=== PATIENT | male | born 1950 | race Caucasian/White ===

== ENCOUNTER 2018-11-22 10:53 | Observation (INO) | payer MEDICARE ==
--- NOTE | 2018-11-22 11:58 | RAD ---
EXAM DESCRIPTION: Abdomen Series, x-ray three views CLINICAL HISTORY: ams COMPARISON: None FINDINGS: Frontal view of the chest and supine and upright images of the abdomen were submitted. Cardiac silhouette is within normal limits. There is no focal parenchymal or pleural disease. There is no free air in the abdomen. There is no evidence of bowel obstruction. IMPRESSION: No acute abnormalities. Electronically signed by: Renny Vela MD 11/22/2018 11:56 AM CDT
--- NOTE | 2018-11-22 12:03 | CT ---
EXAM DESCRIPTION: Head CLINICAL HISTORY: ams COMPARISON: None Available. TECHNIQUE: Contiguous axial images of the brain were obtained without the administration of intravenous contrast.This exam was performed according to our departmental dose-optimization program, which includes automated exposure control, adjustment of the mA and/or kV according to patient size and/or use of iterative reconstruction technique. FINDINGS: Subcentimeter area of low-attenuation in the left basal ganglia could represent an old infarct. An acute injury cannot be excluded. There is no acute intracranial hemorrhage. There is atherosclerosis. There is dilatation of the left vertebral artery and basilar artery. Areas of low attenuation in the periventricular and subcortical white matter are nonspecific but suggestive of small vessel disease. There is generalized atrophy. Ventricular system is within normal limits. There is adequate griffin-white matter differentiation. There is no skull fracture. There is mucoperiosteal thickening of the maxillary sinuses compatible chronic sinusitis changes. Lobular opacities could represent underlying mucous retention cysts versus polyps. Filling defect within the external ear canal may represent cerumen. IMPRESSION: Subcentimeter area of low-attenuation in the left basal ganglia could represent an old infarct. An acute injury cannot be excluded. Follow-up MRI could be helpful for further evaluation unless prior exams are available for comparison. Electronically signed by: Renny Vela MD 11/22/2018 12:00 PM CDT Workstation: [id number]
[2018-11-22] MEDS ORDERED: MAGNESIUM SULFATE PREMIX 2GM 2 GM in PREMIX BAG 1 BAG IVPB ONE (14:10)
[2018-11-22] MEDS ORDERED: METOPROLOL TARTRATE 25 MG TAB PO ONE (14:10)
[2018-11-22] MEDS ORDERED: CLOPIDOGREL 75 MG TAB PO ONE (14:10)
[2018-11-22] MEDS ORDERED: MAGNESIUM SULFATE PREMIX 2GM 50 ML IVPB ONE (14:11)
--- NOTE | 2018-11-22 14:19 | ED.PDOC ---
History of Present Illness - General Chief Complaint: Neuro Symptoms/Deficits Stated Complaint: Increasing confusion x 3 days Time Seen by Provider: 11/22/18 10:55 Source: patient Exam Limitations: no limitations - History of Present Illness Initial Comments: the patient is a 68-year-old male sent to the emergency room secondary to some confusion. The patient has been having a little bit of confusion over the last 2-3 days. No focal neurological changes. He woke his son up this morning stating it was time to go to [place]. There were no plans to go to [place]. He does not remember who the president is but he knows where he is, why he is here and what year it is. He is pleasant and cooperative though drowsy. No obvious nuchal rigidity or meningeal signs. No focal neurological changes. He was recently at [facility] for a non-ST elevation IA and was diagnosed with acute congestive heart failure at that time. He apparently underwent a coronary catheterization which showed diffuse disease but no stents were put in place. He was started on multiple medications at that time. He is not having any pain anywhere. No shortness of breath. Vital signs appear to be stable. I see no overt evidence of any infection. He is significantly disheveled. He is able to ambulate and urinate on his own. Timing/Duration: other - 3 days Severity: mild Improving Factors: nothing Worsening Factors: nothing Associated Symptoms: loss of appetite Allergies/Adverse Reactions: Allergies NO KNOWN ALLERGY Allergy (Verified 11/22/18 11:14) Home Medications: Ambulatory Orders Aspirin [Aspirin Adult Low Dose] 81 mg PO DAILY 11/22/18 Clopidogrel Bisulfate [Plavix] 75 mg PO DAILY 11/22/18 Lisinopril 20 mg PO DAILY 11/22/18 Lovastatin 10 mg PO DAILY 11/22/18 Metformin HCl [Metformin Hydrochloride E] 1,000 mg PO BID 11/22/18 Metoprolol Succinate [Metoprolol Succinate ER] 25 mg PO DAILY 11/22/18 Mirtazapine [Remeron] 1 - 2 tablet PO BEDTIME 11/22/18 Omeprazole 20 mg PO DAILY 11/22/18 Spironolactone [Aldactone] 25 mg PO BID 11/22/18 glyBURIDE [Diabeta] 5 mg PO DAILY 11/22/18 traZODone HCL [Desyrel] 50 mg PO BEDTIME 11/22/18 Review of Systems - Review of Systems Constitutional: States: malaise EENTM: States: no symptoms reported Respiratory: States: no symptoms reported Cardiology: States: no symptoms reported Gastrointestinal/Abdominal: States: no symptoms reported Genitourinary: States: no symptoms reported Musculoskeletal: States: no symptoms reported Skin: States: no symptoms reported Neurological: States: other - mild confusion Endocrine: States: no symptoms reported All other Systems: No Change from Baseline Past Medical History (General) - Patient Medical History Hx Stroke: No Hx of COPD: No Hx Congestive Heart Failure: Yes Hx Hypertension: No Hx Diabetes: Yes Hx Cancer: No Hx of HIV: No Hx Hepatitis C: Yes - none treated Surgical History: other - Vaccination History Hx Tetanus, Diphtheria Vaccination: No Hx Influenza Vaccination: No Hx Pneumococcal Vaccination: No - Social History Hx Tobacco Use: No Hx Chewing Tobacco Use: No Hx Alcohol Use: Yes - quit 6 mos ago Hx Substance Use: No Hx Substance Use Treatment: No Hx Depression: No - Female History Patient : No Family Medical History - Family History Mother Living Status: Hx Cardiac Disease: Yes Physical Exam - Physical Exam General Appearance: Alert, Comfortable, No apparent distress Eye Exam: bilateral normal Ears, Nose, Throat: hearing grossly normal, other - poor dentition. A cerumen plug was removed from his left ear canal. Neck: full range of motion, supple Respiratory: lungs clear, normal breath sounds, no respiratory distress, no accessory muscle use Cardiovascular/Chest: normal peripheral pulses, regular rate, rhythm, no edema Peripheral Pulses: radial,right: 2+, radial,left: 2+, dorsalis pedis,right: 2+, dorsalis pedis,left: 2+ Gastrointestinal/Abdominal: non tender, soft Rectal Exam: deferred Back Exam: no CVA tenderness, no vertebral tenderness Extremity: normal range of motion, non-tender, normal inspection, no pedal edema, normal capillary refill Neurologic: icer air conditioning II-XII nml as tested, other - the patient is drowsy but he technically is oriented 3 Skin Exam: normal color - the patient is very dirty and disheveled Comments: Vital Signs - 24 hr 11/22/18 11/22/18 11/22/18 10:55 12:00 13:00 Temperature 97.2 F L Pulse Rate [L 87 85 83 finger] Respiratory 18 18 18 Rate Blood Pressure 136/79 137/86 138/90 [L arm] O2 Sat by Pulse 96 97 97 Oximetry 11/22/18 14:00 Temperature Pulse Rate [L 85 finger] Respiratory 18 Rate Blood Pressure 138/90 [L arm] O2 Sat by Pulse 100 Oximetry Progress - Progress Progress: 11/22/18 14:22 the patient's 68-year-old male presenting to the emergency room secondary to what appears to be mild confusion over the last couple of days. He does not appear to have any obvious focal neurological deficits at this time. It is possible that he may have had a small stroke several days ago as reflected by the small abnormal area on the head CT. He is already on aspirin and Plavix. It is also possible that he may be having some confusion related to adverse effects from his Remeron and trazodone possibly in conjunction with a benzodiazepine and marijuana as evidenced by his urine drug screen. Due to this the patient will be admitted and followed here in a controlled setting. Mental status will need to be watched. Remeron and trazodone can either be held or given at a significantly reduced dosage to see if their clearance will improve his mental status. He has received a liter of IV fluids here. His recent history would not suggest giving him more. His magnesium level is low and he is going to receive 2 g of magnesium sulfate. He is going to be placed on Augmentin for the sinusitis. - Results/Orders Results/Orders: head CT shows a subcentimeter area on the left basal ganglia that couldrelate to a stroke at some point. He does have sinusitis on the head CT. He also has a cerumen impaction on the head CT. Chest x-ray shows no acute infiltrates. EKG shows normal sinus rhythm at 84 bpm. First degree AV block. Inverted T waves and anterior and lateral leads. Borderline T-wave inversion in inferior leads. This is apparently consistent with the EKGs obtained in [facility] description. Laboratory Tests 11/22/18 11/22/18 11/22/18 11:02 11:48 11:48 WBC 7.3 RBC 4.98 Hgb 13.7 L Hct 41.4 L MCV 83.2 MCH 27.5 MCHC 33.0 RDW 14.7 H Plt Count 273 MPV 8.2 Absolute Neuts (auto) 5.30 Absolute Lymphs (auto) 1.20 Absolute Monos (auto) 0.60 Absolute Eos (auto) 0.20 Absolute Basos (auto) 0.10 Neutrophils % 72.4 Lymphocytes % 16.0 L Monocytes % 7.8 Eosinophils % 3.1 Basophils % 0.7 Sodium 136 Potassium 3.6 Chloride 103 Carbon Dioxide 25 Anion Gap 11.6 L BUN 11 Creatinine 0.82 BUN/Creatinine Ratio 13.4 Random Glucose 220 H Serum Osmolality 278.1 Lactic Acid Calcium 9.8 Magnesium 1.4 L Total Bilirubin 0.6 AST 39 ALT 40 Alkaline Phosphatase 55 Creatine Kinase 36 L CK-MB (CK-2) 2.0 CK-MB (CK-2) % Not Reportable Troponin I 0.04 B-Natriuretic Peptide 757.0 H* Serum Total Protein 6.8 Albumin 3.4 Globulin 3.4 Albumin/Globulin Ratio 1.0 L Amylase 37 Lipase 30 TSH 0.76 Urine Color Urine Appearance Urine pH Ur Specific [place] Urine Protein Urine Glucose (UA) Urine Ketones Urine Blood Urine Nitrite Urine Bilirubin Urine Urobilinogen Ur Leukocyte Esterase Urine RBC Urine WBC Ur Epithelial Cells Urine Bacteria Urine Opiates Screen Negative Urine Barbiturates Negative Ur Phencyclidine Scrn Negative U Amphetamin/Meth Scrn Negative U Benzodiazepines Scrn Positive H U Cocaine Metab Screen Negative U Cannabinoids Screen Positive H Ethyl Alcohol 11/22/18 11/22/18 11/22/18 11:48 11:48 13:49 WBC RBC Hgb Hct MCV MCH MCHC RDW Plt Count MPV Absolute Neuts (auto) Absolute Lymphs (auto) Absolute Monos (auto) Absolute Eos (auto) Absolute Basos (auto) Neutrophils % Lymphocytes % Monocytes % Eosinophils % Basophils % Sodium Potassium Chloride Carbon Dioxide Anion Gap BUN Creatinine BUN/Creatinine Ratio Random Glucose Serum Osmolality Lactic Acid 1.1 Calcium Magnesium Total Bilirubin AST ALT Alkaline Phosphatase Creatine Kinase CK-MB (CK-2) CK-MB (CK-2) % Troponin I B-Natriuretic Peptide Serum Total Protein Albumin Globulin Albumin/Globulin Ratio Amylase Lipase TSH Urine Color Yellow Urine Appearance Clear Urine pH 6.0 Ur Specific [place] >= 1.030 Urine Protein 100 H Urine Glucose (UA) Negative Urine Ketones Negative Urine Blood Negative Urine Nitrite Negative Urine Bilirubin Negative Urine Urobilinogen 1.0 Ur Leukocyte Esterase Negative Urine RBC 0 Urine WBC 0 Ur Epithelial Cells 0 Urine Bacteria 0 Urine Opiates Screen Urine Barbiturates Ur Phencyclidine Scrn U Amphetamin/Meth Scrn U Benzodiazepines Scrn U Cocaine Metab Screen U Cannabinoids Screen Ethyl Alcohol < 5.40 - EKG/XRAY/CT CT Ordered: Yes Departure - Departure Clinical Impression: Hypomagnesemia Sinusitis Qualifiers: Sinusitis location: other Chronicity: subacute Qualified Code(s): J01.80 - Other acute sinusitis Altered mental status, unspecified Qualifiers: Altered mental status type: disorientation Qualified Code(s): R41.0 - Disorientation, unspecified Disposition: Admit Patient Departure Forms: ED Discharge - Pt. Copy, Patient Portal Self Enrollment Referrals: Stiven Shultz MD [Primary Care Provider] - 1-2 Weeks Home Medications: Ambulatory Orders Aspirin [Aspirin Adult Low Dose] 81 mg PO DAILY 11/22/18 Clopidogrel Bisulfate [Plavix] 75 mg PO DAILY 11/22/18 Lisinopril 20 mg PO DAILY 11/22/18 Lovastatin 10 mg PO DAILY 11/22/18 Metformin HCl [Metformin Hydrochloride E] 1,000 mg PO BID 11/22/18 Metoprolol Succinate [Metoprolol Succinate ER] 25 mg PO DAILY 11/22/18 Mirtazapine [Remeron] 1 - 2 tablet PO BEDTIME 11/22/18 Omeprazole 20 mg PO DAILY 11/22/18 Spironolactone [Aldactone] 25 mg PO BID 11/22/18 glyBURIDE [Diabeta] 5 mg PO DAILY 11/22/18 traZODone HCL [Desyrel] 50 mg PO BEDTIME 11/22/18 Decision To Admit - Decistion To Admit Decision to Admit Reason: Medical Nature Decision to Admit Date: 11/22/18 Decision to Admit Time: 14:25
[2018-11-22] MEDS ORDERED: AMOXICILLIN & POT CLAVULANATE 875 MG TAB PO ONE (14:26)
--- NOTE | 2018-11-22 14:32 | HP ---
SUPERVISING PHYSICIAN: Piero Fofana M.D. CHIEF COMPLAINT: Altered mental status. HISTORY OF PRESENT ILLNESS: This is a 68 year-old male patient who came to the Emergency Room after a 2 to 3 day complaint of increased confusion. At the time of admission to the Emergency Room he had no neurological changes. He lives with his son in [place], [place] and he woke his son up this morning and told him it was time to go [place]. There had been no plans to go to [place]. He was oriented to person and place, but was unable to answer who the President was and what the exact date it was. Although pleasant and cooperative, he became increasingly more confused the more questions that were asked. About 3 weeks ago he was in [facility] for a non-ST segment elevation myocardial infarction and was diagnosed with acute congestive heart failure. He underwent coronary tests that showed diffuse disease but there were no stents placed. He had been started on diuretics as well as several medications at that time. His vital signs in the E. R. were stable. CT of the head showed some microvascular changes as well as possible small vessel disease and findings that were compatible with chronic sinusitis, but otherwise no acute changes noted. There may be an area of low attenuation in the left basal ganglia that could represent an old infarct and of course a CT was unable to determine if it was an acute injury. His abdominal x-ray showed no acute abnormalities. CBC was unremarkable. Electrolytes were unremarkable with the exception of his magnesium was low at 1.4. Lactic acid was 1.1. BNP was 757, although there was no evidence of exacerbation of his CHF. His UA was negative. UDS was negative except for Benzodiazepines and cannabinoids. Ethyl alcohol was less than 5.4. He was given some Augmentin in the Emergency Room as well as magnesium supplementation. I was called for hospital admission. It is to be noted that it was difficult to obtain a medical history and review of systems due to the patient's inability to answer many questions. PAST MEDICAL HISTORY: 1. Hypertension. 2. Diabetes mellitus type 2 on oral medication. 3. Gastroesophageal reflux disease. 4. Hyperlipidemia. 5. New diagnosis of congestive heart failure of unknown etiology. 6. Insomnia. PAST SURGICAL HISTORY: None. OUTPATIENT MEDICATIONS: 1. Aspirin. 2. Plavix. 3. Lisinopril. 4. Lovastatin. 5. Metformin. 6. Metoprolol. 7. Remeron. 8. Omeprazole. 9. Spironolactone. 10. Glyburide. 11. DiaBeta. 12. Trazodone. ALLERGIES: NO KNOWN DRUG ALLERGIES. SOCIAL HISTORY: He lives with his son in [place]. He denies tobacco, ETOH or illicit drug use. REVIEW OF SYSTEMS: Unable to obtain due to the patient's mental status. PHYSICAL EXAMINATION: VITAL SIGNS: Temp; 97.5, heart rate 82, blood pressure 136/86, respiratory rate 24, O2 sat 96% on room air. GENERAL: This is a 68 year-old male patient who is lying in his hospital bed. He is in no acute distress. HEENT: Normocephalic and atraumatic. Pupils are equal and reactive. Oropharynx is clear. NECK: Supple without mass. RESPIRATORY: Essentially clear to auscultation bilaterally. CHEST: There is equal rise and fall of the chest with inspiration and expiration. CARDIOVASCULAR: Regular rate and rhythm. GASTROINTESTINAL: Abdomen is soft, nondistended, non-tender. Bowel sounds are positive. EXTREMITIES: No clubbing, cyanosis or edema. NEUROLOGIC: He is awake, alert and oriented times three, although he has a difficult time answering questions such as who is the President or what the exact date is. He does know the year. He also gets very confused when asked about his medical history. SKIN: Warm and dry. ASSESSMENT: 1. Altered mental status of unknown etiology, may be secondary to chronic sinusitis and/or new medication regimen as well as being positive for Benzodiazepines and cannabinoids. 2. Congestive heart failure, new diagnosis, with unknown etiology. He did have a BNP of 757, but there are no signs or symptoms of acute exacerbation. 3. Chronic sinusitis. 4. Positive urine drug screen from Benzodiazepines with no current prescription for Benzodiazepines as well as cannabinoids. 5. Hypertension. 6. Gastroesophageal reflux disease. 7. Hyperlipidemia. PLAN: We will place the patient in observation. I have initiated the TIA guidelines. He will have neurologic checks every 4 hours. I will recheck his labs in the morning as well as a chest x-ray. He is on Lovenox for DVT prophylaxis as well as a PPI for ulcer prophylaxis. I will also hold his Trazodone and the high dose of his Remeron overnight to see if his mental status improves. I did give him the low dose of Remeron tonight and I have also given him melatonin for sleep as the patient did say he had difficulty sleeping. I will review his labs in the morning. He may need further workup with neurology. I have also continued the Augmentin that was ordered in the E. R. for his chronic sinusitis. He may need to go home on several weeks for that. Will continue to monitor him closely and follow as needed. #[id number] MTDD
[2018-11-22] MEDS ORDERED: GLUCAGON INJ 1 MG VIAL SUBCU PRN (16:01)
[2018-11-22] MEDS ORDERED: DEXTROSE 50% 25 GM/50 ML SYG IV PRN (16:01)
[2018-11-22] MEDS ORDERED: SODIUM CHLORIDE 0.9% (FLUSH) 10 ML SYG IV PRN ×2 (16:03→16:05)
[2018-11-22] MEDS ORDERED: IV SET AND CAP CHANGE INJ INJ SCH ×2 (16:30)
[2018-11-22] MEDS: INSULIN LISPRO 100 UNITS/ML PEN SUBCU SCH ×2 (16:31→21:03)
[2018-11-22] MEDS: ENOXAPARIN SODIUM 40 MG/0.4 ML SYG SUBCU SCH (17:02)
[2018-11-22] MEDS: metFORMIN HCL 500 MG TAB PO SCH (17:02)
[2018-11-22] MEDS ORDERED: OMEPRAZOLE CAP 20 MG CAP ONE (19:12)
[2018-11-22] MEDS: MIRTAZAPINE 15 MG TAB PO SCH (20:53)
[2018-11-22] MEDS: SPIRONOLACTONE 25 MG TAB PO SCH (20:53)
[2018-11-22] MEDS: SIMVASTATIN 10 MG TAB PO SCH (20:53)
[2018-11-22] MEDS: MELATONIN 3 MG TAB PO SCH (20:53)
[2018-11-22] MEDS: AMOXICILLIN & POT CLAVULANATE 500MG TAB PO SCH (20:53)
[2018-11-22] MEDS: SODIUM CHLORIDE 0.9% (FLUSH) 10 ML SYG IV SCH (20:53)
[2018-11-23] MEDS: OMEPRAZOLE CAP 20 MG CAP PO SCH (06:13)
[2018-11-23] MEDS ORDERED: ASPIRIN (ENTERIC COATED) 81 MG TAB PO ONE (06:57)
[2018-11-23] MEDS ORDERED: LISINOPRIL 10 MG TAB ONE (06:57)
[2018-11-23] MEDS ORDERED: METOPROLOL SUCCINATE XL 25 MG TAB PO ONE (06:57)
[2018-11-23] MEDS ORDERED: CLOPIDOGREL 75 MG TAB ONE (06:57)
--- NOTE | 2018-11-23 07:01 | RAD ---
Six EXAM DESCRIPTION: Chest,1 View CLINICAL HISTORY: chf COMPARISON: None available FINDINGS: The cardiomediastinal silhouette is unremarkable. There is no airspace consolidation or pleural effusion. The bronchovascular markings are within normal limits, and the lungs are not hyperinflated. There is no pneumothorax or acute fracture. IMPRESSION: No radiographic evidence of CHF. Electronically signed by: Daryl Garcia MD 11/23/2018 6:59 AM CDT
[2018-11-23] MEDS: INSULIN LISPRO 100 UNITS/ML PEN SUBCU SCH ×4 (07:38→21:32)
[2018-11-23] MEDS: metFORMIN HCL 500 MG TAB PO SCH ×2 (07:39→17:10)
[2018-11-23] MEDS: AMOXICILLIN & POT CLAVULANATE 500MG TAB PO SCH ×2 (08:11→20:52)
[2018-11-23] MEDS: CLOPIDOGREL 75 MG TAB PO SCH (08:11)
[2018-11-23] MEDS: METOPROLOL SUCCINATE XL 25 MG TAB PO SCH (08:11)
[2018-11-23] MEDS: LISINOPRIL 10 MG TAB PO SCH (08:11)
[2018-11-23] MEDS: ASPIRIN (ENTERIC COATED) 81 MG TAB PO SCH (08:11)
[2018-11-23] MEDS: SPIRONOLACTONE 25 MG TAB PO SCH ×2 (08:12→20:52)
[2018-11-23] MEDS: SODIUM CHLORIDE 0.9% (FLUSH) 10 ML SYG IV SCH ×2 (08:12→20:53)
[2018-11-23] MEDS: ENOXAPARIN SODIUM 40 MG/0.4 ML SYG SUBCU SCH (08:12)
[2018-11-23] MEDS ORDERED: MAGNESIUM SULFATE PREMIX 2GM 2 GM in PREMIX BAG 1 BAG IVPB ONE (08:29)
[2018-11-23] MEDS ORDERED: MAGNESIUM SULFATE PREMIX 2GM 50 ML IVPB ONE (08:54)
--- NOTE | 2018-11-23 10:29 | US ---
EXAM DESCRIPTION: Carotid Duplex: ULTRASOUND. CLINICAL HISTORY: 68 years Male confusion COMPARISON: CT scan of the head 11/22/2018. TECHNIQUE: Transcutaneous scanning utilizing griffin-scale and Doppler modes to evaluate the bilateral carotid systems and vertebral arteries. Percentage of diameter of stenosis or no stenosis recorded will be based upon NASCET criteria. FINDINGS: Peak systolic/end diastolic (CM-Sec) CCA Right 53/9 Left 47/6. ICA Right proximal 49/15, mid 52/15. Left proximal 61/11, mid 53/11. Vertebral Right 22/5 Left not seen.. ECA (PS Only) Right 61 left 89. ICA/CCA peak systolic ratio: Right 1.0 Left 1.3 ICA/CCA end diastolic ratio: Right 1.7 Left 1.8 Vertebral arteries: antegrade flow right. Left vertebral artery not visualized. Comments: Atherosclerotic calcification in the bilateral common carotid bifurcations. Spectral broadening distal right ICA. Spectral broadening proximal and distal left ICA. Area and diameter stenosis of the left common carotid bulb less than 60%. Area and diameter stenosis of the proximal left ICA less than 55%. Area and diameter stenosis of the proximal right ICA less than 35%. IMPRESSION: 1. Doppler evaluation of the bilateral carotid systems and vertebral arteries shows no hemodynamically significant stenoses. However, area and diameter stenosis of the left common carotid bulb is between 60 and 55%. 2. Moderate amount of plaque seen in the carotid arteries bilaterally. Right vertebral artery showed antegrade-cephalad flow. Left vertebral artery was not visualized. Electronically signed by: Cole Araya MD 11/23/2018 10:27 AM CDT
--- NOTE | 2018-11-23 19:49 | PN ---
DATE: 11/23 SUPERVISING PHYSICIAN: Henrry Taylor M.D. SUBJECTIVE: The patient is lying in bed visiting with a friend. He is still slightly confused today, although he is oriented to person, place and day of the week. He is feeling better and denies any shortness of breath, but he continues to be confused if asked any complicated questions. It also takes him several minutes to answer a question. OBJECTIVE: VITAL SIGNS: Temperature 98.2, heart rate 80, blood pressure 111/72, respiratory rate 20, O2 sat 98% on room air. RESPIRATORY: Essentially clear to auscultation bilaterally. CARDIAC: Regular rate and rhythm. GASTROINTESTINAL: Abdomen is soft, nondistended, non-tender. Bowel sounds are positive. NEUROLOGIC: He is awake and alert but gets confused easily and is unable to answer most questioning. LABORATORY: WBCs are 8.6 with hemoglobin 13.9, hematocrit 42.8. Electrolytes are basically within normal limits with the exception of his magnesium is low at 1.6, glucose has run between 114 and 156. Triglyceride 136, LDH 55.9, HDL 19. Amylase 37, lipase 30, TSH 0.76. Chest x-ray shows no radiographic evidence of congestive heart failure. Carotid artery ultrasound shows: 1. Doppler evaluation of the bilateral carotid system and vertebral arteries show no hemodynamically significant stenosis, however area and diameter stenosis of the left common carotid bulb is between 60 and 55%. 2. Moderate amount of plaque seen in the carotid arteries bilaterally. Right vertebral artery shows antegrade cephalad flow. Left vertebral artery was not visualized. All other labs and films have been reviewed via the EMR. ASSESSMENT: 1. Altered mental status of unknown etiology, may be secondary to chronic sinusitis and/or new medication regimen as well as being positive for Benzodiazepines and cannabinoids. 2. Congestive heart failure, new diagnosis, with unknown etiology. He did have a BNP of 757, but there are no signs or symptoms of acute exacerbation and his chest x-ray shows no signs or symptoms of acute exacerbation. 3. Chronic sinusitis. 4. Positive urine drug screen from Benzodiazepines with no current prescription for Benzodiazepines as well as cannabinoids. 5. Hypertension. 6. Gastroesophageal reflux disease. 7. Hyperlipidemia. PLAN: We will continue present supportive care. Will continue the patient in observation. He is on a very small amount of Remeron and his Trazodone has been discontinued. I am not sure that his mental status has improved. Most likely he will need to be discharged home with a followup with a neurologist. Will continue with the Augmentin for his sinusitis. Will plan for discharge tomorrow or the next day with close followup with neurology as well as his PCP. Will continue to monitor closely and follow as needed. #[id number] MTDD
[2018-11-23] MEDS: MELATONIN 3 MG TAB PO SCH (20:52)
[2018-11-23] MEDS: MIRTAZAPINE 15 MG TAB PO SCH (20:52)
[2018-11-23] MEDS: SIMVASTATIN 10 MG TAB PO SCH (20:52)
[2018-11-24] MEDS: OMEPRAZOLE CAP 20 MG CAP PO SCH (06:15)
[2018-11-24] MEDS: INSULIN LISPRO 100 UNITS/ML PEN SUBCU SCH ×2 (07:03→11:28)
[2018-11-24] MEDS: METOPROLOL SUCCINATE XL 25 MG TAB PO SCH (08:10)
[2018-11-24] MEDS: metFORMIN HCL 500 MG TAB PO SCH (08:10)
[2018-11-24] MEDS: ASPIRIN (ENTERIC COATED) 81 MG TAB PO SCH (08:10)
[2018-11-24] MEDS: LISINOPRIL 10 MG TAB PO SCH (08:10)
[2018-11-24] MEDS: AMOXICILLIN & POT CLAVULANATE 500MG TAB PO SCH (08:11)
[2018-11-24] MEDS: SODIUM CHLORIDE 0.9% (FLUSH) 10 ML SYG IV SCH (08:11)
[2018-11-24] MEDS: CLOPIDOGREL 75 MG TAB PO SCH (08:11)
[2018-11-24] MEDS: ENOXAPARIN SODIUM 40 MG/0.4 ML SYG SUBCU SCH (08:11)
[2018-11-24] MEDS: SPIRONOLACTONE 25 MG TAB PO SCH (08:59)
[2018-11-24] MEDS ORDERED: MAGNESIUM SULFATE PREMIX 2GM 2 GM in PREMIX BAG 1 BAG IVPB ONE (09:57)
[2018-11-24] MEDS ORDERED: MAGNESIUM SULFATE PREMIX 2GM 50 ML IVPB ONE (10:30)
[2018-11-24 10:57] VITALS: BP 119/78; TEMP 97.9; O2SAT 97
--- NOTE | 2018-11-27 09:01 | DS ---
SUPERVISING PHYSICIAN: Henrry Taylor MD DISCHARGE DIAGNOSIS: 1. Altered mental status of unknown etiology, may be secondary to chronic sinusitis and/or new medication regimen as well as being positive for benzodiazepines and cannabinoids. 2. Congestive heart failure, new diagnosis, with unknown etiology. He did have a BNP of 757, but there are no signs or symptoms of acute exacerbation and his chest x-ray shows no signs or symptoms of acute exacerbation. 3. Chronic sinusitis. 4. Positive urine drug screen from benzodiazepines with no current prescription for benzodiazepines as well as cannabinoids. 5. Hypertension. 6. Gastroesophageal reflux disease. 7. Hyperlipidemia. HISTORY OF PRESENT ILLNESS: This is a 68-year-old male patient who came to the Emergency Room after his son complained that for 2 to 3 days he had some increased confusion. At the time of admission to the Emergency Room he had no neurological changes or stroke-like symptoms. He lives with his son in [place], [place], and on the morning prior to admission, he woke his son up and asked when they were leaving for [place]. There had been no plans to go to [place]. He was oriented to person and place, but was unable to answer who the President was and what the exact date it was. He was pleasant and cooperative, but with more questioning, he became more and more confused. About 3 weeks prior to his admission, he was in [facility] for a non-ST segment elevation myocardial infarction and was also diagnosed with acute congestive heart failure. He underwent a coronary catheterization that showed diffuse disease, but there were no stents placed. He had been started on diuretics as well as several other heart medications at that time. His vital signs in the Emergency Room were stable. CT of the head showed some microvascular changes as well as possible small vessel disease and findings that were compatible with chronic sinusitis, but otherwise no acute changes noted. There may be an area of low attenuation in the left basal ganglia that could represent an old infarct and the CT was unable to determine if it was an acute injury. His abdominal x-ray showed no acute abnormalities. CBC was unremarkable. Electrolytes were unremarkable with the exception of his magnesium was low at 1.4. Lactic acid was 1.1. BNP was 757, although there was no evidence of exacerbation of his CHF. His UA was negative. UDS was negative except for benzodiazepines and cannabinoids. Ethyl alcohol was less than 5.4. He was given some Augmentin in the Emergency Room as well as magnesium supplementation. I was called to place the patient in Observation in the hospital for his neuro status. It was difficult to obtain a medical history and review of systems due to the patient's inability to answer many questions. HOSPITAL COURSE: The patient was placed in Observation and TIA guidelines were initiated. His neuro checks did not change lead the next 2 days. Lovenox was started for DVT prophylaxis and proton pump inhibitor for ulcer prophylaxis. His outpatient medications showed him taking trazodone at night as well as 15 to 30 mg of Remeron nightly. I discontinued the trazodone and placed him on a smaller dosing of Remeron at 15 mg at h.s. He was given some melatonin for his insomnia. He was also started on the Augmentin for the possible chronic sinusitis. His mental status did not change and did not worsen, nor did it vastly improve. Sometimes, you could speak with the patient and he was more oriented than other times, but he usually had increased confusion with multiple questions. His vital signs have remained stable. His glipizide was never started as his blood sugars ran between 97 and 156 and I am not sure that there could have been some low blood sugars that could have contributed to his confusion. He will be discharged home today in stable condition. LABORATORY: CBC remained unremarkable with hemoglobin 13.9, hematocrit 42.8. Blood sugars ran between 97 and 156. He was only on metformin while in the hospital as well as a sliding scale insulin with a.c. and h.s. blood sugar checks. Chemistries were unremarkable although he did have several supplementations of magnesium for the initial low magnesium. He received magnesium supplementation today and prior to supplementation, his magnesium was 1.7. Triglycerides 136, LDL 55.8 and HDL was 19. TSH 0.75, lipase 30, amylase 37. RADIOLOGY: Head CT and abdominal x-ray as per the history of present illness. His chest x-ray showed no radiographic evidence of congestive heart failure. His carotid artery ultrasound showed 1) Doppler evaluation of the bilateral carotid systems and vertebral arteries showed no hemodynamically significant stenosis, however, area and diameter stenosis of the left common carotid bulb is between 60 and 55%. 2) Moderate amount of plaque seen in the carotid arteries bilaterally. Right vertebral artery shows antegrade-cephalad flow. Left vertebral artery was not visualized. DISCHARGE PLAN: The patient will be discharged home in stable condition. Physical therapy had recommended that he go home with home health, but at the time of discharge he refused home health and he would talk to Melany Arenas about home health on his hospital followup visit. He is to resume his previous diet, which was a diabetic diet. He can increase his activity as tolerated. He has a followup appointment with Melany Arenas on 12/02/18 at 10:15 AM. In addition to his changes in his home medications, he is also to go home on Augmentin twice daily for a total of 3 weeks. It is recommended that he have a neurological consultation. I stopped his trazodone and started him on melatonin. His Remeron has been reduced to 15 mg at bedtime. I did discontinue his glipizide as his blood sugars ran between 97 and 156 while in the hospital and the only diabetic medication he was on was metformin. It is also recommended that he discuss having home health to help with his physical therapy. He is to return to the hospital or followup with Melany Arenas for any problems or complications. DISCHARGE MEDICATIONS: 1. Metoprolol. 2. Aspirin. 3. Lovastatin. 4. Metformin. 5. Lisinopril. 6. Aldactone. 7. Omeprazole. 8. Plavix. 9. Augmentin. 10. Melatonin 3 mg at bedtime. 11. Remeron 15 mg at bedtime. #[id number] MTDD
== END 2018-11-24 11:40 | disposition home or self-care (01) ==
LOC: ER 10:53 → MS 14:30
PROVIDERS: ADMIT Nurse Practitioner Acute Care; ATTEND Nurse Practitioner Acute Care
DX: E83.42 Hypomagnesemia (principal); R41.82 Altered mental status, unspecified; I11.0 Hypertensive heart disease with heart failure; I50.9 Heart failure, unspecified; J32.9 Chronic sinusitis, unspecified; F12.10 Cannabis abuse, uncomplicated; F13.10 Sedative, hypnotic or anxiolytic abuse, uncomplicated; K21.9 Gastro-esophageal reflux disease without esophagitis; E78.5 Hyperlipidemia, unspecified; E11.9 Type 2 diabetes mellitus without complications; I65.23 Occlusion and stenosis of bilateral carotid arteries; I44.0 Atrioventricular block, first degree; G47.00 Insomnia, unspecified; Z79.84 Long term (current) use of oral hypoglycemic drugs; Z79.02 Long term (current) use of antithrombotics/antiplatelets; Z79.82 Long term (current) use of aspirin; Z79.899 Other long term (current) drug therapy; Z86.19 Personal history of other infectious and parasitic diseases
CPT/HCPCS: 96366 ×2; 96365; 96372 ×3; J1650 ×3; J3475 ×3; J1815; 80048; 82553; 80053 ×2; 80307; 82948 ×8; 80061; 36415 ×3; 82150; 81001; 85025 ×2; 82550; 80320; 83690; 83735 ×3; 84443; 84484; 83880; 36416 ×7; 83605; 74019; 71045; 70450; 93880; 94760 ×8; 97116; G8978; G8979; 97162; 99285; 93005

== ENCOUNTER 2019-12-04 14:13 | Emergency (ER) | payer MEDICARE ==
[2019-12-04] MEDS ORDERED: SODIUM CHLORIDE 0.9% 1000ML 1,000 ML IVS PRN (14:20)
[2019-12-04] MEDS ORDERED: SODIUM CHLORIDE 0.9% (FLUSH) 10 ML SYG IV PRN (14:20)
--- NOTE | 2019-12-04 14:26 | ED.PDOC ---
History of Present Illness - General Time Seen by Provider: 12/04/19 14:17 Source: patient, RN notes reviewed, Vital Signs reviewed, EMS notes reviewed, EMS Exam Limitations: clinical condition - History of Present Illness Initial Comments: Patient is a 69-year-old male with a history of coronary artery disease who presents the ED via ambulance for confusion. No family is available at this time. Per EMS, patient had went to the [employer] on 4 separate occasions today to check the balance and his bank account then went to [facility] and the workers there felt he was confused and called EMS. EMS talk to patient's son prior to transport who stated that patient is more confused than his baseline today, but it is unknown when this started. Patient denies headache, chest pain, shortness of breath, nausea or any symptoms. He cannot tell me what he has done today. Denies fever or any recent illnesses or head injury. Per EMR he was admitted 1 year ago for a similar presentation that was felt to be due to to medications he had recently started. Allergies/Adverse Reactions: Allergies NO KNOWN ALLERGY Allergy (Verified 12/04/19 14:51) Home Medications: Ambulatory Orders RX: Aspirin [Aspirin Adult Low Dose] 81 mg PO DAILY 11/22/18 RX: Clopidogrel Bisulfate [Plavix] 75 mg PO DAILY 11/22/18 RX: Lisinopril 20 mg PO DAILY 11/22/18 RX: Lovastatin 10 mg PO DAILY 11/22/18 RX: Metformin HCl [Metformin Hydrochloride E] 1,000 mg PO BID 11/22/18 RX: Metoprolol Succinate [Metoprolol Succinate ER] 25 mg PO DAILY 11/22/18 RX: Omeprazole 20 mg PO DAILY 11/22/18 RX: Spironolactone [Aldactone] 25 mg PO BID 11/22/18 RX: Amoxicillin & Pot Clavulanate [Augmentin Tab] 500 mg PO Q12H #36 tab 11/24/18 RX: Melatonin 3 mg PO BEDTIME #30 tab 11/24/18 RX: Mirtazapine [Remeron] 15 mg PO BEDTIME tab 11/24/18 Review of Systems - Review of Systems Constitutional: Denies: chills, fever, weakness EENTM: Denies: blurred vision, nose congestion, throat pain Respiratory: Denies: cough, short of breath Cardiology: Denies: chest pain, edema, syncope Gastrointestinal/Abdominal: Denies: abdominal pain, nausea, vomiting Musculoskeletal: Denies: back pain, joint pain, joint swelling Skin: Denies: change in color Neurological: Denies: headache All other Systems: Reviewed and Negative Past Medical History (General) - Patient Medical History Hx Stroke: No Hx of COPD: No Hx Congestive Heart Failure: Yes Hx Hypertension: No Hx Diabetes: Yes Hx Cancer: No Hx of HIV: No Hx Hepatitis C: Yes - none treated Hx MRSA: No - Vaccination History Hx Tetanus, Diphtheria Vaccination: No Hx Influenza Vaccination: No Hx Pneumococcal Vaccination: No - Social History Hx Tobacco Use: No Hx Chewing Tobacco Use: No Hx Alcohol Use: Yes - quit 6 mos ago Hx Substance Use: No Hx Substance Use Treatment: No Hx Depression: No - Female History Patient : No Family Medical History - Family History Mother Living Status: Hx Cardiac Disease: Yes Physical Exam - Physical Exam General Appearance: Alert, Comfortable, No apparent distress Eye Exam: bilateral normal - PERRL Ears, Nose, Throat: normal pharynx Neck: non-tender, full range of motion, supple Respiratory: chest non-tender, lungs clear, normal breath sounds, no respiratory distress, no accessory muscle use Cardiovascular/Chest: regular rate, rhythm, no edema, no murmur Gastrointestinal/Abdominal: non tender, soft, no pulsatile mass Back Exam: no CVA tenderness Extremity: normal range of motion, non-tender, no pedal edema, no calf tenderness Neurologic: other - Patient is alert, speech is fluent and conversational. He is oriented to person and place but is unsure of the year and says it is 2000 and something. Cranial nerves are intact. Able to name simple objects easily. Strength is 5 out of 5 in all extremities. Skin Exam: normal color, warm/dry Progress - Progress Progress: 12/04/19 14:31 Differential diagnosis includes but is not limited to intracranial hemorrhage, CVA, dehydration, sepsis, pneumonia, electrolyte abnormality, UTI, medication reaction 12/04/19 15:46 Patient presented to ED with confusion, onset unknown. He was found wandering around his bank and at [facility] earlier today and EMS was called. Patient is alert and oriented to person and place. He is unable to tell me what he did earlier today. He denies any chest pain or shortness of breath, headache or any other symptoms. Chest x-ray shows a possible right lower lobe infiltrate. White blood cell count and lactic acid are normal. He has no fever here. EKG shows no ischemic findings, but troponin is elevated at 0.17, his previous 1 year ago was 0.04. I have discussed with hospitalist, Sidney Contreras, and he recommends transfer for cardiac evaluation, as he does ot feel comfortable keeping patient here due to elevated troponin. 12/04/19 15:53 D/W pt results and he agrees with transfer to [facility] for pneumonia and elevated troponin. 12/04/19 16:09 Discussed with [facility] transfer line and patient will have to go to ED for COVID testing and cannot be direct admit. Discussed with Dr. Diehl via [facility] transfer line, he accepts patient to ED. - Results/Orders Results/Orders: Chest x-ray Right pleural effusion and right basilar infiltrate CT Brain Unremarkable EKG- NSR, rate 62, 1st degree AV block, nonspecific ST abnormality 12/04/19 14:20 URINE DRUG SCREEN, 7 ASSAY Stat Sodium Chloride 0.9% (Flush) [Saline Flush Syringe] 10 ml IV PRN PRN Sodium Chloride 0.9% 1000ML [Ns 1000 ml] 1,000 ml IVS .QD 12/04/19 14:23 MAGNESIUM Stat 12/04/19 14:30 EKG STAT 12/04/19 15:17 BLOOD CULTURE Stat 12/04/19 15:23 Piperacillin/Tazobactam [Zosyn] 3.375 gm Sodium Chloride 0.9% 100Ml [NS (NACL 0.9%) 100ml] 100 ml IVPB ONCE Laboratory Results - last 24 hr 12/04/19 12/04/19 12/04/19 14:30 14:30 14:30 WBC 6.7 RBC 5.05 Hgb 14.1 Hct 42.0 MCV 83.0 MCH 28.0 MCHC 33.7 RDW 15.9 H Plt Count 178 MPV 8.4 Absolute Neuts (auto) 4.50 Absolute Lymphs (auto) 1.00 Absolute Monos (auto) 0.70 Absolute Eos (auto) 0.40 Absolute Basos (auto) 0.10 Neutrophils % 67.5 Lymphocytes % 15.2 L Monocytes % 10.6 H Eosinophils % 5.6 H Basophils % 1.1 PT 11.0 H INR 1.11 PTT (SP) 25.3 Sodium 137 Potassium 3.6 Chloride 102 Carbon Dioxide 26 Anion Gap 12.6 BUN 11 Creatinine 1.13 BUN/Creatinine Ratio 9.7 L Random Glucose 100 Serum Osmolality 273.3 L Lactic Acid Calcium 9.2 Total Bilirubin 1.3 H AST 37 ALT 39 Alkaline Phosphatase 83 Creatine Kinase 95 CK-MB (CK-2) 4.6 H* CK-MB (CK-2) % Not Reportable Troponin I 0.17 H* Serum Total Protein 7.0 Albumin 3.6 Globulin 3.4 Albumin/Globulin Ratio 1.1 Urine Color Urine Appearance Urine pH Ur Specific Balsam Urine Protein Urine Glucose (UA) Urine Ketones Urine Blood Urine Nitrite Urine Bilirubin Urine Urobilinogen Ur Leukocyte Esterase Urine RBC Urine WBC Ur Epithelial Cells Urine Bacteria Salicylates Acetaminophen < 10.0 L Ethyl Alcohol 12/04/19 12/04/19 12/04/19 14:30 14:50 15:28 WBC RBC Hgb Hct MCV MCH MCHC RDW Plt Count MPV Absolute Neuts (auto) Absolute Lymphs (auto) Absolute Monos (auto) Absolute Eos (auto) Absolute Basos (auto) Neutrophils % Lymphocytes % Monocytes % Eosinophils % Basophils % PT INR PTT (SP) Sodium Potassium Chloride Carbon Dioxide Anion Gap BUN Creatinine BUN/Creatinine Ratio Random Glucose Serum Osmolality Lactic Acid 1.0 Calcium Total Bilirubin AST ALT Alkaline Phosphatase Creatine Kinase CK-MB (CK-2) CK-MB (CK-2) % Troponin I Serum Total Protein Albumin Globulin Albumin/Globulin Ratio Urine Color Yellow Urine Appearance Clear Urine pH 5.0 Ur Specific Balsam 1.015 Urine Protein Negative Urine Glucose (UA) Negative Urine Ketones Negative Urine Blood Trace-lysed H Urine Nitrite Negative Urine Bilirubin Negative Urine Urobilinogen 1.0 Ur Leukocyte Esterase Negative Urine RBC 0-1 Urine WBC 0 Ur Epithelial Cells 0-1 Urine Bacteria 0 Salicylates Acetaminophen Ethyl Alcohol < 5.40 Departure - Departure Clinical Impression: Elevated troponin, Hypomagnesemia Altered mental state Qualifiers: Altered mental status type: disorientation Qualified Code(s): R41.0 - Disorientation, unspecified Pneumonia Qualifiers: Pneumonia type: due to unspecified organism Laterality: right Lung location: lower lobe of lung Qualified Code(s): J18.9 - Pneumonia, unspecified organism Time of Disposition: 16:11 Disposition: Transfer to Hospital Condition: Fair Departure Forms: ED Discharge - Pt. Copy, Patient Portal Self Enrollment Referrals: Stiven Shultz MD [Primary Care Provider] - 1-2 Weeks Home Medications: Ambulatory Orders RX: Aspirin [Aspirin Adult Low Dose] 81 mg PO DAILY 11/22/18 RX: Clopidogrel Bisulfate [Plavix] 75 mg PO DAILY 11/22/18 RX: Lisinopril 20 mg PO DAILY 11/22/18 RX: Lovastatin 10 mg PO DAILY 11/22/18 RX: Metformin HCl [Metformin Hydrochloride E] 1,000 mg PO BID 11/22/18 RX: Metoprolol Succinate [Metoprolol Succinate ER] 25 mg PO DAILY 11/22/18 RX: Omeprazole 20 mg PO DAILY 11/22/18 RX: Spironolactone [Aldactone] 25 mg PO BID 11/22/18 RX: Amoxicillin & Pot Clavulanate [Augmentin Tab] 500 mg PO Q12H #36 tab 11/24/18 RX: Melatonin 3 mg PO BEDTIME #30 tab 11/24/18 RX: Mirtazapine [Remeron] 15 mg PO BEDTIME tab 11/24/18 Comments: Patient presents for confusion and altered mental state. Per EMS he had gone into check his bank account balance at the [employer] 4 times this morning then was found confused and wandering inside [facility]. Upon arrival to ED, vital signs were stable and patient was alert and pleasant. He has no cough or respiratory distress. On questioning he cannot tell me anything that he did earlier today. Labs show a troponin of 0.17, normal white count and lactic acid. Chest x-ray is concerning for right lower lobe pneumonia. IV fluids, IV Zosyn, and aspirin were given. Has hypomagnesium and given 2G IV Magnesium Sulfate. Discussed w [facility] hospitalist about admission and recommended transfer for cardiology evaluation. Transfer to Outside Facility - Transfer Information Decision to Transfer Date: 12/04/19 Decision to Transfer Time: 15:51 Reason for Transfer: required specialist not available - cardiology Accepting Provider:: Dr. Diehl Accepting Facility: [facility]
--- NOTE | 2019-12-04 15:02 | RAD ---
EXAM DESCRIPTION: XR Chest, one view CLINICAL HISTORY: AMS. COMPARISON: November 23, 2018 FINDINGS: The heart is normal in size. The pulmonary vascularity is normal. Right pleural effusion and compressive atelectasis are noted in the right lung base. No pneumothorax is seen. Mild degenerative changes are seen in the shoulder joints. IMPRESSION: Right pleural effusion and right basilar infiltrate/atelectasis. Electronically signed by: Sue Mcconnell MD 12/04/2019 3:00 PM CDT
--- NOTE | 2019-12-04 15:04 | CT ---
EXAM DESCRIPTION: CT head without contrast. CLINICAL HISTORY: AMS . COMPARISON: November 22, 2018 TECHNIQUE: Contiguous axial sections are obtained as per protocol. Sagittal and coronal reformations are submitted Automatic exposure control (AEC), mA and/or kV adjustment by patient size, and/or iterative reconstructive technique was used, per departmental dose optimization program, during the performance of the CT examination. FINDINGS: Tiny old lacunar infarct in the left internal capsule region is again noted. 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 Ventricles, sulci and cisterns appear normal. Normal griffin-white matter differentiation is noted. No evidence of intra or extra-axial hemorrhage, hematoma, mass, mass effect or midline shift is noted. The posterior fossa structures appear normal. The bony calvarium appears intact. The soft tissues of the scalp appear unremarkable. Normal appearance of the orbits are noted. The paranasal sinuses and mastoids appear normal. Evidence of prior sinonasal surgery is noted. Overall there are no interval changes since prior study. IMPRESSION: Unremarkable non contrast enhanced CT examination of brain. If clinically ischemic CVA is suspected, MRI brain with diffusion-weighted images should be considered. Electronically signed by: Sue Mcconnell MD 12/04/2019 3:03 PM CDT
[2019-12-04] MEDS ORDERED: PIPERACILLIN/TAZOBACTAM 3.375 GM in SODIUM CHLORIDE 0.9% 100ML 100 ML IVPB ONE (15:23)
[2019-12-04] MEDS ORDERED: ASPIRIN (CHEWABLE) 81 MG TAB PO ONE (15:54)
[2019-12-04 16:34] VITALS: TEMP 98.1
[2019-12-04] MEDS ORDERED: MAGNESIUM SULFATE PREMIX 2GM 2 GM in PREMIX BAG 1 BAG IVPB ONE (16:48)
[2019-12-04 17:03] VITALS: BP 124/88; O2SAT 98
== END 2019-12-04 17:14 | disposition short-term general hospital (02) ==
LOC: ER 14:13
DX: J18.9 Pneumonia, unspecified organism (principal); R41.0 Disorientation, unspecified; R79.89 Other specified abnormal findings of blood chemistry; E83.42 Hypomagnesemia; I50.9 Heart failure, unspecified; E11.9 Type 2 diabetes mellitus without complications; Z79.899 Other long term (current) drug therapy; Z79.82 Long term (current) use of aspirin
CPT/HCPCS: 36415; 70450; 71045; 80053; 80307; 80320; 80329; 81001; 82550; 82553; 83605; 83735; 84484; 85025; 85610; 85730; 87040; 93005; J2543; J3475; J7030; J7050